=== PATIENT | female | born 1995 | race Caucasian/White ===

== ENCOUNTER 2017-10-26 05:08 | Inpatient (IN) | payer OTHER ==
[~2017-10-26] VITALS: Ht 162.6 cm; Wt 1.4 kg
[2017-10-29] MEDS ORDERED: NAPR500T14 PO (12:44)
[2017-10-29] MEDS ORDERED: FERROUS SULFAT325 M1 PO (12:44)
[2017-10-29] MEDS ORDERED: PREPLUS CA-FE1 EACH PO (12:44)
== END 2017-10-29 14:19 | disposition home or self-care (01) | DRG 765 ==
LOC: LDR 05:08 → O/R 10:09 → OB/GYN 10:15
PROVIDERS: Specialist
PROC: 4A1HXCZ Monitoring of Products of Conception, Cardiac Rate, External Approach (ICD-10-PCS; 2017-10-26)
PROC: 4A033R1 Measurement of Arterial Saturation, Peripheral, Percutaneous Approach (ICD-10-PCS; 2017-10-26)
PROC: 10D00Z1 Extraction of Products of Conception, Low, Open Approach (ICD-10-PCS; principal; 2017-10-26 09:00)
DX: O32.1XX0 Maternal care for breech presentation, not applicable or unspecified (principal); O60.14X0 Preterm labor third trimester with preterm delivery third trimester, not applicable or unspecified; O69.81X0 Labor and delivery complicated by cord around neck, without compression, not applicable or unspecified; Z3A.29 29 weeks gestation of pregnancy; Z37.0 Single live birth

== ENCOUNTER 2024-11-15 17:08 | Emergency (ER) | payer OTHER ==
[~2024-11-15] VITALS: Ht 165.1 cm; Wt 54.4 kg
[~2024-11-15 17:08] MED LIST: FERROUS SULFAT325 M1 PO; NAPR500T14 PO; PREPLUS CA-FE1 EACH PO
[2024-11-15] MEDS ORDERED: FAMOTIDINE/PF 20 MG/2 ML VIAL IV PUSH STA (17:53)
[2024-11-15] MEDS ORDERED: KETOROLAC TROMETHAMINE 15 MG VIAL IV STA (17:53)
[2024-11-15] MEDS ORDERED: ONDANSETRON HCL 2 MG/ML VIAL IV STA (17:53)
== END 2024-11-15 19:35 | disposition home or self-care (01) ==
LOC: ER 17:10
DX: J10.1 Influenza due to other identified influenza virus with other respiratory manifestations (principal); Z20.822 Contact with and (suspected) exposure to COVID-19

== ENCOUNTER 2025-06-11 08:46 | Emergency (ER) | payer OTHER ==
[~2025-06-11] VITALS: Ht 165.1 cm; Wt 59.0 kg
[2025-06-11] MEDS ORDERED: ACETAMINOPHEN 500 MG GEL..CAP PO ONE ×2 (09:45→09:51)
[2025-06-11 10:30] LABS: BASO % 0.5 % (0.1-1.2); EOS # 0.07 (0.04-0.54); EOS % 0.6 % (0.7-7.0); LYMPH # 2.11 (1.18-3.74); LYMPH % 17.7 % (19.3-53.1); MEAN PLATELET VOLUME 11.20 fl (9.4-12.4); MONO # 0.75 (0.24-0.82); MONO % 6.3 % (4.7-12.5); NEUT # 8.90 (1.56-6.13); NEUT % 74.6 % (34.0-71.1); RED CELL DISTRIBUTION WIDTH 12.0 % (11.6-14.4)
[2025-06-11 11:17] LABS: COVID-19 AG NEGATIVE (NEGATIVE)
== END 2025-06-11 11:49 | disposition home or self-care (01) ==
LOC: ER 08:47 → EMR PED 08:47 → ER 09:47
PROVIDERS: General Practice
DX: B34.9 Viral infection, unspecified (principal); Z20.822 Contact with and (suspected) exposure to COVID-19